=== PATIENT | female | born 1960 | race African-American/Black ===

== ENCOUNTER 2019-06-15 23:24 | Inpatient (IN) | payer SELFPAY ==
[~2019-06-15 23:24] MED LIST: ISOVUE-370 76%-LOCM 1 ML ONE
[2019-06-15] MEDS ORDERED: Adacel (T-DAP) 0.5 ML SYRINGE ONE (23:34)
[2019-06-15] MEDS ORDERED: CEFAZOLIN 1 GM VIAL ONE (23:34)
[2019-06-16] MEDS ORDERED: Fentanyl 100 MCG/2 ML VIAL ONE (00:41)
[2019-06-16 00:52] LABS: #Monocytes 0.4 thou/uL (0.11-0.59); #Neutrophils 7.1 thou/uL (1.40-6.50); %Basophils 0.3 % (0.0-1.0); %Eosinophils 0.3 % (0.0-10.0); %Lymphocytes 20.5 % (21.0-51.0); %Monocytes 4.6 % (0.0-10.0); %Neutrophils 74.5 % (42.0-75.0); Mean Corpuscular HGB CONC 32.5 g/dL (32.0-36.0); Mean Corpuscular Hemoglobin 30.5 pg (27.0-31.0); Mean Corpuscular Volume 93.9 fL (78.0-98.0); Mean Platelet Volume 9.2 fL (7.4-10.4); Platelet Count 207 thou/uL (130-400); RBC Distribution Width 11.8 % (11.5-14.5); White Blood Cell (WBC) Count 9.6 thou/uL (4.8-10.8)
[2019-06-16 01:02] LABS: ALT (SGPT) 47 U/L (8-55); AST (SGOT) 79 U/L (5-34); Albumin 3.8 g/dL (3.5-5.0); Alkaline Phosphatase 106 U/L (40-150); Anion Gap 15 mmol/L (10-20); BUN (Urea Nitrogen) 19 mg/dL (9.8-20.1); Bilirubin, Total 0.2 mg/dL (0.2-1.2); Calc. Creatinine Clearance 0 mL/min (70-130); Calcium 9.2 mg/dL (7.8-10.44); Carbon Dioxide 23 mmol/L (22-29); Chloride 103 mmol/L (98-107); Estimated GFR-MDRD 61; Globulin 2.4 g/dL (2.4-3.5); Glucose 154 mg/dL (70-105); Lipase 51 U/L (8-78); Protein, Total 6.2 g/dL (6.0-8.3); Sodium 138 mmol/L (136-145)
[2019-06-16 01:03] LABS: Acetaminophen Less than 6.0 mcg/mL (10.0-30.0); Alcohol Less than 10 mg/dL (Less than 10); Salicylate Less than 8.0 mg/dL (15.0-30.0)
[2019-06-16 01:06] LABS: Potassium 2.9 mmol/L (3.5-5.1)
[2019-06-16] MEDS ORDERED: Morphine 4 MG/ML VIAL ONE (01:32)
[2019-06-16] MEDS ORDERED: Ondansetron PF 4 MG/2 ML Vial ONE (01:32)
[2019-06-16 01:59] LABS: Amphetamine Not Detected (NotDetected); Barbiturates Screen Not Detected (NotDetected); Benzodiazepine Screen Not Detected (NotDetected); Cocaine Metabolite Screen Not Detected (NotDetected); Medtox Control Line Valid? VALID (VALID); Medtox Reader # READER 1; Methadone Not Detected (NotDetected); Methamphetamine Not Detected (NotDetected); Opiate Screen Not Detected (NotDetected); Oxycodone Screen Not Detected (NotDetected); Phencyclidine (PCP) Not Detected (NotDetected); THC/Cannabinoid Screen Not Detected (NotDetected); Tricyclic Screen Not Detected (NotDetected)
[2019-06-16 02:05] LABS: Bacteria/HPF None Seen HPF (None Seen); Bilirubin Negative (Negative); Blood, Urine 1+ (Negative); Clarity Clear (Clear); Glucose, Urine (Dipstick) Normal (Negative); Leukocyte Negative Leu/uL (Negative); Nitrite Negative (Negative); Protein, Urine (Dipstick) Negative (Neg-Trace); Squamous Epithelial 0-3 HPF (0-3); Urobilinogen Normal mg/dL (Less than 2)
[2019-06-16] MEDS ORDERED: Morphine 2 MG/ML SYRINGE SLOW IVP PRN (03:00)
[2019-06-16] MEDS ORDERED: Dextrose 5% in Water 1,000 ML IV PRN (03:00)
[2019-06-16] MEDS ORDERED: Ondansetron PF 4 MG/2 ML Vial IVP PRN (03:00)
[2019-06-16] MEDS ORDERED: hydrALAZINE 20 MG/ML VIAL SLOW IVP PRN (03:00)
[2019-06-16] MEDS ORDERED: Dextrose 50% Abboject 50 ML SYRINGE SLOW IVP PRN (03:00)
[2019-06-16] MEDS ORDERED: Ondansetron ODT 4 MG TAB PO PRN (03:00)
[2019-06-16 03:06] VITALS: BMI 22.4
[2019-06-16] MEDS: Acetaminophen 1,000 MG in Premix Bag 1 BAG IVPB SCH ×4 (03:26→23:48)
[2019-06-16] MEDS: Potassium Chloride 20 MEQ in Premix Bag 1 BAG IVPB SCH ×2 (03:27→08:03)
[2019-06-16] MEDS: Sodium Chloride 0.9% 1,000 ML IV SCH ×2 (03:27→12:32)
[2019-06-16 05:36] LABS: Anion Gap 15 mmol/L (10-20); BUN (Urea Nitrogen) 14 mg/dL (9.8-20.1); Calc. Creatinine Clearance 72 mL/min (70-130); Calcium 8.9 mg/dL (7.8-10.44); Carbon Dioxide 20 mmol/L (22-29); Chloride 105 mmol/L (98-107); Estimated GFR-MDRD 81; Glucose 129 mg/dL (70-105); Magnesium 1.8 mg/dL (1.6-2.6); Potassium 3.7 mmol/L (3.5-5.1); Sodium 136 mmol/L (136-145)
[2019-06-16] MEDS ORDERED: Lidocaine 1% w/Epinephrine 1:100K 20 ML VIAL ONE (05:56)
[2019-06-16 06:10] LABS: #Basophils 0.1 thou/uL (0.0-0.2); #Lymphocytes 0.5 thou/uL (1.20-3.40); #Monocytes 0.5 thou/uL (0.11-0.59); #Neutrophils 7.8 thou/uL (1.40-6.50); %Basophils 0.6 % (0.0-1.0); %Eosinophils 0.2 % (0.0-10.0); %Monocytes 5.9 % (0.0-10.0); %Neutrophils 87.2 % (42.0-75.0); Hemoglobin 10.9 g/dL (12.0-16.0); Mean Corpuscular HGB CONC 32.8 g/dL (32.0-36.0); Mean Corpuscular Hemoglobin 30.2 pg (27.0-31.0); Mean Corpuscular Volume 92.2 fL (78.0-98.0); Mean Platelet Volume 9.9 fL (7.4-10.4); Platelet Count 159 thou/uL (130-400); RBC Distribution Width 11.7 % (11.5-14.5); Red Blood Cell (RBC) Count 3.59 mill/uL (4.20-5.40); White Blood Cell (WBC) Count 8.9 thou/uL (4.8-10.8)
[2019-06-16] MEDS ORDERED: Magnesium 2 GM/50 ML 2 GM in Premix Bag 1 BAG IVPB SCH (06:15)
--- NOTE | 2019-06-16 08:12 | RAD ---
EXAM: XR Hand Lt 3 View STANDARD PROVIDED CLINICAL HISTORY: Pain FINDINGS: There is no evidence for fracture or other acute osseous abnormality. Alignment appears anatomic. Linda nt spaces appear preserved. IMPRESSION: No evidence for an acute osseous abnormality. If there is persistent clinical concern, conservative m anagement and follow-up imaging advised.
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
[2019-06-16] MEDS: Famotidine/PF 20 mg/2ml Vial SLOW IVP SCH ×2 (09:48→21:15)
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
[2019-06-16 17:16] LABS: #Lymphocytes 1.1 thou/uL (1.20-3.40); #Monocytes 0.4 thou/uL (0.11-0.59); #Neutrophils 5.8 thou/uL (1.40-6.50); %Basophils 0.1 % (0.0-1.0); %Eosinophils 0.1 % (0.0-10.0); %Lymphocytes 14.4 % (21.0-51.0); %Monocytes 5.8 % (0.0-10.0); %Neutrophils 79.6 % (42.0-75.0); Hemoglobin 9.7 g/dL (12.0-16.0); Mean Corpuscular HGB CONC 31.7 g/dL (32.0-36.0); Mean Corpuscular Hemoglobin 30.4 pg (27.0-31.0); Mean Corpuscular Volume 95.9 fL (78.0-98.0); Platelet Count 151 thou/uL (130-400); RBC Distribution Width 11.8 % (11.5-14.5); Red Blood Cell (RBC) Count 3.19 mill/uL (4.20-5.40); White Blood Cell (WBC) Count 7.3 thou/uL (4.8-10.8)
[2019-06-16] MEDS: Morphine 2 MG/ML SYRINGE SLOW IVP PRN ×2 (19:26→23:46)
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
[2019-06-17] MEDS: Morphine 2 MG/ML SYRINGE SLOW IVP PRN ×2 (06:15→10:55)
[2019-06-17 06:30] LABS: #Lymphocytes 0.8 thou/uL (1.20-3.40); #Monocytes 0.3 thou/uL (0.11-0.59); #Neutrophils 4.6 thou/uL (1.40-6.50); %Basophils 0.4 % (0.0-1.0); %Eosinophils 0.4 % (0.0-10.0); %Lymphocytes 13.4 % (21.0-51.0); %Monocytes 5.1 % (0.0-10.0); %Neutrophils 80.6 % (42.0-75.0); Hemoglobin 8.9 g/dL (12.0-16.0); Mean Corpuscular HGB CONC 31.9 g/dL (32.0-36.0); Mean Corpuscular Volume 93.9 fL (78.0-98.0); Mean Platelet Volume 9.2 fL (7.4-10.4); Platelet Count 136 thou/uL (130-400); Red Blood Cell (RBC) Count 2.96 mill/uL (4.20-5.40); White Blood Cell (WBC) Count 5.7 thou/uL (4.8-10.8)
[2019-06-17 07:07] LABS: Anion Gap 9 mmol/L (10-20); BUN (Urea Nitrogen) 6 mg/dL (9.8-20.1); Calc. Creatinine Clearance 81 mL/min (70-130); Calcium 8.8 mg/dL (7.8-10.44); Carbon Dioxide 25 mmol/L (22-29); Chloride 107 mmol/L (98-107); Estimated GFR-MDRD Greater than 90; Glucose 76 mg/dL (70-105); Magnesium 2.4 mg/dL (1.6-2.6); Phosphorus 2.2 mg/dL (2.3-4.7); Potassium 3.7 mmol/L (3.5-5.1); Sodium 137 mmol/L (136-145)
[2019-06-17 08:45] LABS: Lactic Acid 1.5 mmol/L (0.5-2.2)
[2019-06-17] MEDS: Famotidine/PF 20 mg/2ml Vial SLOW IVP SCH ×2 (10:01→21:40)
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
[2019-06-17] MEDS ORDERED: Lidocaine 1% PF 5 ML VIAL ONE (12:26)
[2019-06-17] MEDS ORDERED: Ondansetron PF 4 MG/2 ML Vial ONE (12:26)
[2019-06-17] MEDS ORDERED: Ketorolac Tromethamine 30 MG/ML VIAL ONE ×2 (12:26→17:16)
[2019-06-17] MEDS ORDERED: Dexamethasone 20 MG/5 ML VIAL ONE (12:26)
[2019-06-17] MEDS ORDERED: Rocuronium Bromide 10 MG/ML (10ML VIAL) ONE (12:26)
[2019-06-17] MEDS ORDERED: PHENYLEPHRINE-NS 100 MCG/ML 10 ML SYRINGE ONE (12:26)
[2019-06-17] MEDS ORDERED: PROPOFOL 200 MG/20 ML VIAL ONE (12:26)
[2019-06-17] MEDS ORDERED: Bupivacaine/Epinephrine 0.25% 30 ML VIAL ONE (13:01)
[2019-06-17] MEDS ORDERED: Piperacillin/Tazobactam 3.375 GM VIAL ONE (13:27)
[2019-06-17] MEDS ORDERED: Sodium Chloride 0.9% 100 ML ONE (13:27)
[2019-06-17] MEDS ORDERED: Fentanyl 100 MCG/2 ML VIAL ONE ×4 (13:51→17:29)
[2019-06-17] MEDS ORDERED: Midazolam HCl 2 mg/2 ml Vial ONE (13:51)
--- NOTE | 2019-06-17 15:17 | EKG ---
Test Reason : STAT CP Blood Pressure : / mmHG Vent. Rate : 082 BPM Atrial Rate : 082 BPM P-R Int : 128 ms QRS Dur : 078 ms QT Int : 390 ms P-R-T Axes : 049 007 013 degrees QTc Int : 455 ms Normal sinus rhythm Nonspecific ST and T wave abnormality Abnormal ECG No previous ECGs available Confirmed by KEVYN WALTER, DR. Back ([id number]) on 06/17/2019 3:16:59 PM Referred By: OTIS CHANG Confirmed By:DR. Nazanin BAGLEY MD
[2019-06-17] MEDS ORDERED: PACU-Morphine 4MG/ML VIAL SLOW IVP PRN (17:15)
[2019-06-17] MEDS ORDERED: Promethazine HCl 25 MG/ML VIAL IM PRN ×2 (17:15→17:33)
[2019-06-17] MEDS ORDERED: Ondansetron HCl/PF 4 MG/2 ML Vial IVP PRN (17:15)
[2019-06-17] MEDS ORDERED: HYDROmorphone 2 MG/ML VIAL SLOW IVP PRN (17:15)
[2019-06-17] MEDS ORDERED: Promethazine HCl 25 MG/ML VIAL SLOW IVP PRN (17:15)
[2019-06-17] MEDS ORDERED: Dexamethasone 4 mg/ml Vial ONE (17:16)
[2019-06-17] MEDS ORDERED: HYDROmorphone 10 mg/100 ml CADD IVPB PRN (17:33)
[2019-06-17] MEDS ORDERED: diphenhydrAMINE 25 MG CAP PO PRN (17:33)
[2019-06-17] MEDS ORDERED: Naloxone HCl 0.4 mg/ml Vial IV PRN (17:33)
[2019-06-17] MEDS ORDERED: diphenhydrAMINE 50 MG/ML VIAL IM PRN (17:33)
[2019-06-17] MEDS ORDERED: Ondansetron PF 4 MG/2 ML Vial IVP PRN (17:33)
[2019-06-17] MEDS ORDERED: diphenhydrAMINE 50 MG/ML VIAL IVP PRN (17:33)
[2019-06-17] MEDS ORDERED: Communication Order-Pharmacy FS SCH (17:45)
[2019-06-17] MEDS: Ketorolac Tromethamine 30 MG/ML VIAL IVP SCH ×2 (19:03→23:58)
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
[2019-06-18] MEDS: Ketorolac Tromethamine 30 MG/ML VIAL IVP SCH ×4 (05:23→23:31)
[2019-06-18] MEDS: Cepastat Lozenges 1 LOZ PO PRN (06:47)
[2019-06-18 07:42] LABS: #Basophils 0.1 thou/uL (0.0-0.2); #Lymphocytes 0.4 thou/uL (1.20-3.40); #Monocytes 0.3 thou/uL (0.11-0.59); #Neutrophils 6.3 thou/uL (1.40-6.50); %Basophils 1.1 % (0.0-1.0); %Eosinophils 0.1 % (0.0-10.0); %Lymphocytes 6.1 % (21.0-51.0); %Monocytes 4.3 % (0.0-10.0); %Neutrophils 88.5 % (42.0-75.0); Hemoglobin 9.9 g/dL (12.0-16.0); Mean Corpuscular HGB CONC 32.5 g/dL (32.0-36.0); Mean Corpuscular Hemoglobin 31.1 pg (27.0-31.0); Mean Corpuscular Volume 95.7 fL (78.0-98.0); Mean Platelet Volume 9.3 fL (7.4-10.4); Platelet Count 169 thou/uL (130-400); RBC Distribution Width 11.9 % (11.5-14.5); Red Blood Cell (RBC) Count 3.18 mill/uL (4.20-5.40); White Blood Cell (WBC) Count 7.2 thou/uL (4.8-10.8)
[2019-06-18 08:05] LABS: Anion Gap 16 mmol/L (10-20); BUN (Urea Nitrogen) 11 mg/dL (9.8-20.1); Calc. Creatinine Clearance 72 mL/min (70-130); Calcium 8.5 mg/dL (7.8-10.44); Carbon Dioxide 19 mmol/L (22-29); Chloride 108 mmol/L (98-107); Estimated GFR-MDRD Greater than 90; Glucose 83 mg/dL (70-105); Magnesium 2.1 mg/dL (1.6-2.6); Phosphorus 2.6 mg/dL (2.3-4.7); Potassium 4.1 mmol/L (3.5-5.1); Sodium 139 mmol/L (136-145)
[2019-06-18] MEDS: Famotidine/PF 20 mg/2ml Vial SLOW IVP SCH ×2 (09:09→20:04)
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
[2019-06-18] MEDS: Enoxaparin Sodium 40 MG/0.4 ML SYRINGE SC SCH (10:20)
[2019-06-18] MEDS ORDERED: Acetaminophen 1,000 MG in Premix Bag 1 BAG IVPB SCH (12:00)
[2019-06-18] MEDS: Acetaminophen 1,000 MG in Premix Bag 1 BAG IVPB SCH ×2 (15:18→20:04)
--- NOTE | 2019-06-18 17:47 | PRG ---
DATE OF SERVICE: 06/18/2019 SUBJECTIVE: Ms. Lockett is a 58-year-old woman, postop day #1, status post exploratory laparotomy, right hemicolectomy with primary anastomosis. The patient is awake and alert. She reports adequate pain control. Urinary output is adequate for the patient's age and weight. OBJECTIVE: VITAL SIGNS: Include blood pressure 114/62, pulse 88, respiratory rate is 19, temperature 99.8 degrees Fahrenheit, and oxygen saturation is 99% on 2 L by nasal cannula oxygen. HEART: Reveals regular rate and rhythm. LUNGS: Clear to auscultation bilaterally. Breathing, regular and nonlabored. ABDOMEN: Soft, nondistended. She has incisional tenderness to palpation. She has no rebound tenderness present today. NEUROLOGIC: Reveals no focal deficits present. LABORATORY FINDINGS: Include a CBC with 7200 white blood cells, hemoglobin and hematocrit 9.9 and 30.4 respectively. Platelet count is 169,000. Metabolic profile; sodium 139, potassium 4.1, chloride is 108, bicarb is 19, BUN 11, creatinine 0.73, glucose 83, magnesium 2.1, phosphorus 2.6. IMPRESSION: 1. Postop day #1, status post exploratory laparotomy, right hemicolectomy and primary anastomosis. 2. The patient is hemodynamically stable. 3. She will be transferred to general surgical floor. 4. We will increase activity per Physical and Occupational therapy. 5. Taylor catheter will be discontinued. Job ID: [id number]
[2019-06-18] MEDS: Sodium Chloride 0.9% 1,000 ML IV SCH (23:31)
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
[2019-06-19] MEDS: Acetaminophen 1,000 MG in Premix Bag 1 BAG IVPB SCH ×2 (02:48→09:19)
[2019-06-19 05:07] LABS: Anion Gap 17 mmol/L (10-20); BUN (Urea Nitrogen) 14 mg/dL (9.8-20.1); Calc. Creatinine Clearance 71 mL/min (70-130); Calcium 8.7 mg/dL (7.8-10.44); Carbon Dioxide 15 mmol/L (22-29); Chloride 112 mmol/L (98-107); Estimated GFR-MDRD Greater than 90; Glucose 70 mg/dL (70-105); Magnesium 2.4 mg/dL (1.6-2.6); Phosphorus 1.8 mg/dL (2.3-4.7); Potassium 3.9 mmol/L (3.5-5.1); Sodium 140 mmol/L (136-145)
[2019-06-19 05:29] LABS: #Lymphocytes 0.6 thou/uL (1.20-3.40); #Monocytes 0.4 thou/uL (0.11-0.59); #Neutrophils 5.7 thou/uL (1.40-6.50); %Eosinophils 0.3 % (0.0-10.0); %Lymphocytes 9.1 % (21.0-51.0); %Monocytes 5.4 % (0.0-10.0); %Neutrophils 85.2 % (42.0-75.0); Hemoglobin 9.1 g/dL (12.0-16.0); Mean Corpuscular HGB CONC 32.4 g/dL (32.0-36.0); Mean Corpuscular Hemoglobin 30.5 pg (27.0-31.0); Mean Platelet Volume 9.5 fL (7.4-10.4); Platelet Count 159 thou/uL (130-400); RBC Distribution Width 12.2 % (11.5-14.5); White Blood Cell (WBC) Count 6.7 thou/uL (4.8-10.8)
[2019-06-19] MEDS: Ketorolac Tromethamine 30 MG/ML VIAL IVP SCH ×2 (05:33→11:16)
[2019-06-19] MEDS: Levothyroxine Sodium 75 MCG TAB PO SCH ×2 (05:37→11:16)
[2019-06-19] MEDS ORDERED: Potassium Phosphate 20 MMOL in Sodium Chloride 0.9% 250 ML 250 ML IVPB SCH (06:30)
[2019-06-19] MEDS: Sodium Chloride 0.9% 1,000 ML IV SCH ×3 (07:42→18:24)
[2019-06-19] MEDS ORDERED: Potassium Phosphate 30 MMOL in Sodium Chloride 0.9% 500 ML IVPB SCH (08:30)
[2019-06-19] MEDS: Famotidine/PF 20 mg/2ml Vial SLOW IVP SCH ×2 (09:18→20:49)
[2019-06-19] MEDS: Enoxaparin Sodium 40 MG/0.4 ML SYRINGE SC SCH (09:19)
[2019-06-19] MEDS: Acetaminophen/Codeine 30-300mg Tablet PO SCH ×3 (11:15→22:57)
[2019-06-19] MEDS: Acetaminophen 325 MG TAB PO SCH ×3 (11:15→22:58)
[2019-06-19] MEDS: Cepastat Lozenges 1 LOZ PO PRN ×2 (11:18→23:30)
[2019-06-19] MEDS ORDERED: Potassium Phosphate 15 MMOL in Sodium Chloride 0.9% 250 ML 250 ML IVPB SCH (13:00)
[2019-06-19] MEDS: Ibuprofen 600 MG TAB PO SCH ×3 (13:25→23:18)
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
[2019-06-20] MEDS: Sodium Chloride 0.9% 1,000 ML IV SCH (03:25)
[2019-06-20] MEDS: Acetaminophen/Codeine 30-300mg Tablet PO SCH ×4 (05:26→23:06)
[2019-06-20] MEDS: Acetaminophen 325 MG TAB PO SCH ×4 (05:27→23:06)
[2019-06-20] MEDS: Levothyroxine Sodium 75 MCG TAB PO SCH (05:27)
[2019-06-20] MEDS: Ibuprofen 600 MG TAB PO SCH ×3 (05:27→20:18)
[2019-06-20] MEDS: Cepastat Lozenges 1 LOZ PO PRN (05:28)
[2019-06-20 06:32] LABS: Anion Gap 12 mmol/L (10-20); BUN (Urea Nitrogen) 6 mg/dL (9.8-20.1); Calc. Creatinine Clearance 89 mL/min (70-130); Carbon Dioxide 19 mmol/L (22-29); Chloride 113 mmol/L (98-107); Estimated GFR-MDRD Greater than 90; Glucose 108 mg/dL (70-105); Magnesium 2.1 mg/dL (1.6-2.6); Sodium 140 mmol/L (136-145)
[2019-06-20 06:35] LABS: Phosphorus 1.8 mg/dL (2.3-4.7)
[2019-06-20] MEDS: Famotidine/PF 20 mg/2ml Vial SLOW IVP SCH ×2 (08:06→20:18)
[2019-06-20] MEDS: Enoxaparin Sodium 40 MG/0.4 ML SYRINGE SC SCH (08:06)
[2019-06-20] MEDS: Hydrochlorothiazide 25 MG TAB PO SCH (09:12)
[2019-06-20] MEDS: Losartan 25 MG TAB PO SCH (09:13)
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
[2019-06-21 05:27] LABS: #Eosinphils 0.1 thou/uL (0.0-0.7); #Monocytes 0.2 thou/uL (0.11-0.59); #Neutrophils 5.1 thou/uL (1.40-6.50); %Basophils 0.2 % (0.0-1.0); %Eosinophils 0.9 % (0.0-10.0); %Lymphocytes 15.1 % (21.0-51.0); %Monocytes 3.3 % (0.0-10.0); %Neutrophils 80.4 % (42.0-75.0); Hemoglobin 8.5 g/dL (12.0-16.0); Mean Corpuscular HGB CONC 32.3 g/dL (32.0-36.0); Mean Corpuscular Hemoglobin 30.5 pg (27.0-31.0); Mean Corpuscular Volume 94.3 fL (78.0-98.0); Mean Platelet Volume 7.5 fL (7.4-10.4); Platelet Count 254 thou/uL (130-400); RBC Distribution Width 12.2 % (11.5-14.5); White Blood Cell (WBC) Count 6.3 thou/uL (4.8-10.8)
[2019-06-21 05:48] LABS: Magnesium 1.7 mg/dL (1.6-2.6); Phosphorus 2.9 mg/dL (2.3-4.7)
[2019-06-21] MEDS: Ibuprofen 600 MG TAB PO SCH ×3 (06:19→18:44)
[2019-06-21] MEDS: Acetaminophen/Codeine 30-300mg Tablet PO SCH ×4 (06:19→22:36)
[2019-06-21] MEDS: Acetaminophen 325 MG TAB PO SCH ×4 (06:20→22:36)
[2019-06-21] MEDS: Levothyroxine Sodium 75 MCG TAB PO SCH (06:20)
[2019-06-21] MEDS ORDERED: Magnesium Chloride 64 MG TAB PO SCH (07:30)
[2019-06-21] MEDS ORDERED: PHOS-NAK 1 PKT PACK PO SCH (07:30)
[2019-06-21] MEDS: Polyethylene Glycol 3350 17 GM Packet PO SCH (09:24)
[2019-06-21] MEDS: Losartan 25 MG TAB PO SCH (09:24)
[2019-06-21] MEDS: Hydrochlorothiazide 25 MG TAB PO SCH (09:25)
[2019-06-21] MEDS: Famotidine/PF 20 mg/2ml Vial SLOW IVP SCH ×2 (09:26→20:40)
[2019-06-21] MEDS: Senokot S 8.6-50 MG TAB PO SCH ×2 (09:26→20:43)
[2019-06-21] MEDS: Enoxaparin Sodium 40 MG/0.4 ML SYRINGE SC SCH (09:26)
--- NOTE | 2019-06-21 11:42 | PRG ---
DATE OF SERVICE: 06/20/2019 SUBJECTIVE: states that she is tolerating a clear liquid diet . She does have a feeling of fullness . OBJECTIVE: VITAL SIGNS: . GENERAL: The patient . PULMONARY: Clear to auscultation bilaterally. No wheeze or crackles. HEART: Regular rate and rhythm. No gallops. ABDOMEN: Soft. Mildly tender to palpation at the incision site. She said she LABORATORY DATA: Sodium . Job ID: [id number]
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
[2019-06-22] MEDS: Acetaminophen/Codeine 30-300mg Tablet PO SCH ×4 (05:12→18:11)
[2019-06-22] MEDS: Acetaminophen 325 MG TAB PO SCH ×3 (05:59→18:11)
[2019-06-22] MEDS: Ibuprofen 600 MG TAB PO SCH ×2 (05:59→13:06)
[2019-06-22] MEDS: Levothyroxine Sodium 75 MCG TAB PO SCH (06:07)
[2019-06-22 06:19] LABS: #Eosinphils 0.1 thou/uL (0.0-0.7); #Monocytes 0.4 thou/uL (0.11-0.59); #Neutrophils 5.4 thou/uL (1.40-6.50); %Basophils 0.2 % (0.0-1.0); %Eosinophils 1.1 % (0.0-10.0); %Lymphocytes 14.5 % (21.0-51.0); %Monocytes 6.4 % (0.0-10.0); %Neutrophils 77.8 % (42.0-75.0); Hemoglobin 9.1 g/dL (12.0-16.0); Mean Corpuscular HGB CONC 32.7 g/dL (32.0-36.0); Mean Corpuscular Hemoglobin 30.5 pg (27.0-31.0); Mean Corpuscular Volume 93.5 fL (78.0-98.0); Mean Platelet Volume 7.3 fL (7.4-10.4); Platelet Count 313 thou/uL (130-400); RBC Distribution Width 12.2 % (11.5-14.5); Red Blood Cell (RBC) Count 2.96 mill/uL (4.20-5.40); White Blood Cell (WBC) Count 6.9 thou/uL (4.8-10.8)
[2019-06-22 06:44] LABS: Anion Gap 11 mmol/L (10-20); BUN (Urea Nitrogen) 6 mg/dL (9.8-20.1); Calc. Creatinine Clearance 88 mL/min (70-130); Calcium 9.3 mg/dL (7.8-10.44); Carbon Dioxide 28 mmol/L (22-29); Chloride 102 mmol/L (98-107); Estimated GFR-MDRD Greater than 90; Glucose 99 mg/dL (70-105); Magnesium 1.7 mg/dL (1.6-2.6); Phosphorus 3.5 mg/dL (2.3-4.7); Potassium 3.3 mmol/L (3.5-5.1); Sodium 138 mmol/L (136-145)
[2019-06-22] MEDS: Hydrochlorothiazide 25 MG TAB PO SCH (08:43)
[2019-06-22] MEDS: Losartan 25 MG TAB PO SCH (08:43)
[2019-06-22] MEDS: Senokot S 8.6-50 MG TAB PO SCH ×2 (08:44→20:22)
[2019-06-22] MEDS: Famotidine/PF 20 mg/2ml Vial SLOW IVP SCH (08:45)
[2019-06-22] MEDS: Enoxaparin Sodium 40 MG/0.4 ML SYRINGE SC SCH (08:45)
[2019-06-22] MEDS: Polyethylene Glycol 3350 17 GM Packet PO SCH (08:45)
[2019-06-22] MEDS ORDERED: Losartan 25 MG TAB PO SCH (09:00)
[2019-06-22] MEDS ORDERED: Ibuprofen 600 MG TAB PO PRN (14:44)
[2019-06-22] MEDS ORDERED: Potassium Chloride 20 MEQ TAB PO SCH (15:00)
[2019-06-22] MEDS ORDERED: Furosemide 40 MG/4 ML VIAL SLOW IVP SCH (15:00)
[2019-06-22] MEDS: Furosemide 20 MG/2 ML VIAL SLOW IVP SCH (15:01)
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
[2019-06-22] MEDS: Famotidine 20 MG TAB PO SCH (20:22)
[2019-06-23] MEDS: Acetaminophen/Codeine 30-300mg Tablet PO SCH ×3 (00:03→13:01)
[2019-06-23] MEDS: Acetaminophen 325 MG TAB PO SCH ×3 (00:03→13:01)
[2019-06-23] MEDS: Cepastat Lozenges 1 LOZ PO PRN (00:06)
[2019-06-23] MEDS: Furosemide 20 MG/2 ML VIAL SLOW IVP SCH (02:50)
[2019-06-23] MEDS: Levothyroxine Sodium 75 MCG TAB PO SCH (06:08)
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
[2019-06-23] MEDS ORDERED: Potassium Chloride 20 MEQ TAB PO SCH (08:00)
[2019-06-23] MEDS: Enoxaparin Sodium 40 MG/0.4 ML SYRINGE SC SCH (08:36)
[2019-06-23] MEDS: Hydrochlorothiazide 25 MG TAB PO SCH (08:37)
[2019-06-23] MEDS: Famotidine 20 MG TAB PO SCH (08:38)
[2019-06-23] MEDS: Losartan 25 MG TAB PO SCH (08:38)
[2019-06-23] MEDS: Senokot S 8.6-50 MG TAB PO SCH (08:39)
[2019-06-23] MEDS: Polyethylene Glycol 3350 17 GM Packet PO SCH (09:31)
[2019-06-23 11:31] VITALS: BP 144/82; TEMP 98.7
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
== END 2019-06-23 15:00 | disposition home or self-care (01) | DRG 329 ==
LOC: ERS 23:24 → IMCU/EMU 06-16 01:21 → SJJU 06-19 17:30
PROVIDERS: ADMIT Surgery; ATTEND Surgery
PROC: 0DTF0ZZ Resection of Right Large Intestine, Open Approach (ICD-10-PCS; 2019-06-16)
PROC: 08QPXZZ Repair Left Upper Eyelid, External Approach (ICD-10-PCS; principal; 2019-06-17)
DX: S36.498A Other injury of other part of small intestine, initial encounter (principal); K65.8 Other peritonitis; S36.892A Contusion of other intra-abdominal organs, initial encounter; D62 Acute posthemorrhagic anemia; S01.112A Laceration without foreign body of left eyelid and periocular area, initial encounter; S01.81XA Laceration without foreign body of other part of head, initial encounter; I10 Essential (primary) hypertension; E03.9 Hypothyroidism, unspecified; E83.42 Hypomagnesemia; E83.39 Other disorders of phosphorus metabolism; V49.9XXA Car occupant (driver) (passenger) injured in unspecified traffic accident, initial encounter; Y93.89 Activity, other specified; Y92.89 Other specified places as the place of occurrence of the external cause; Y99.9 Unspecified external cause status
CPT/HCPCS: 36415; 36416; 70450; 70486; 71045; 71260; 72125; 72170; 74177; 80048; 80053; 80306; 80307; 81003; 81015; 82150; 83605; 83690; 83735; 84100; 85025; 86850; 86900; 86901; 88307; 90471; 90715; 93005; 93010; 96361; 96365; 96375; G0390; J0131; J0690; J1100; J1650; J1885; J1940; J2001; J2250; J2270; J2405; J2543; J2704; J3010; J3475; J3480; J3490; J7050; Q0162; Q9966; S0028